=== PATIENT | female | born 1995 | race Caucasian/White ===

== ENCOUNTER 2017-08-12 23:19 | Inpatient (IN) | payer OTHER ==
[~2017-08-12] VITALS: Ht 172.7 cm; Wt 93.9 kg
[~2017-08-12 23:19] MED LIST: DICLEGIS DR 101 EACH PO; PRENATAL TABLE1 EAC2 PO; ZOFRAN ODT4 M1 SL
[2017-08-13 01:33] LABS: ABSOLUTE BASOPHIL COUNT 0 /CUMM (0.0-0.2); ABSOLUTE EOSINOPHIL COUNT 0.7 /CUMM (0.0-0.7); ABSOLUTE GRANULOCYTE CT 11.9 /CUMM (1.4-6.5); ABSOLUTE LYMPH COUNT 1.8 /CUMM (1.2-3.4); BASOPHIL % 0.2 % (0.0-2.0); EOSINOPHIL % 4.8 % (0-5); HEMATOCRIT 32.1 % (37-47); MEAN CORPUSCULAR HGB 29.7 PG (27.0-31.0); MEAN CORPUSCULAR HGB CONC 33.8 G/DL (33.0-37.0); MEAN CORPUSCULAR VOLUME 87.9 FL (81.0-99.0); MEAN PLATELET VOLUME 8.6 FL (7.4-10.4); PLATELET COUNT 215 /CUMM (130-400); RED BLOOD CELL CT 3.65 /CUMM (4.20-5.40); WHITE BLOOD CELL COUNT 15.4 /CUMM (4.8-10.8)
[2017-08-13 03:11] VITALS: BP 127/68
--- NOTE | 2017-08-13 07:10 | History & Physical ---
General Information and HPI MD Statement: I have seen and personally examined EUGENIO SIMON and documented this H&P. The patient is a 21 year old female at 40weeks and 2 days gestation who presented with a chief complaint of contractions. Source of Information: patient, old records Exam Limitations: no limitations History of Present Illness: Patient is a 21 year old Para 0 with irregular contractions since Wednesday the 08 of August. Patient contacted expert medical writer several times with week with similar complaints. Took Bishop oil last night at 6-7 pm as well. Presented last night at 3 cm with painful contractions. 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 Home Who Do You Live With? self Primary Language: [place] Citizen Smoking Status: Never Smoked ETOH Use: denies use Illicit Drug Use: denies illicit drug use Living Will? unknown Power of Packer And Carry Out/HCP? unknown Other Social History: na Employment History Employment Employed Review of Systems Review of Systems Constitutional: Denies: no symptoms. EENTM: Denies: no symptoms. Cardiovascular: Denies: no symptoms. Respiratory: Denies: no symptoms. GI: Denies: no symptoms. Genitourinary: Denies: no symptoms. Musculoskeletal: Denies: no symptoms. Skin: Denies: no symptoms. Neurological/Psychological: Denies: no symptoms. Hematologic/Endocrine: Denies: no symptoms. Immunologic/Allergic: Denies: no symptoms. All Other Systems: Reviewed and Negative Date of LMP: 11/04/16 Date of Last Pap Smear: 02/01/17 Comments LSIL PAP Exam & Diagnostic Data Last 24 Hrs of Vital Signs/I&O Vital Signs Date Time Temp Pulse Resp B/P B/P Pulse O2 O2 Flow FiO2 Mean Ox Delivery Rate 08/13 0311 127/68 Intake & Output 08/13 0800 04 0000 04 1600 Intake Total Output Total Balance Patient 93.894 kg Weight Obstetric Exam Wgt Gained During : 20 LBS Pelvimetry: Gynecoid Dilation (cm): 3 Effacement (%): 100 Station: -1 Membranes: intact Fluid: intact Fundal Height (cm): 38 Multiple Gestation? No Contractions: regular q4 #1 - FHR Baseline: 140 Category: 1 Estimated Weight: 3500 grams Presentation: Cephalic Patient for Induction? No John Score John Score Response Value Cervix Position: mid-position 1 Cervix Consistency: soft 2 Cervix Effacement: >80% 3 Cervix Dilation: 3-4 cm 2 Cervix Station: -1 2 Total 10 Physical Exam General Appearance Alert, Oriented X3, Cooperative, Mild Distress Skin No Rashes HEENT Atraumatic, PERRLA Neck Supple Cardiovascular Regular Rate Lungs Normal Air Movement Abdomen Normal Bowel Sounds, Soft Neurological Normal Gait, Normal Speech, Strength at 5/5 X4 Ext, Normal Tone, Sensation Intact, Reflexes 2+ Extremities No Edema Breasts Breast appear nl Reproductive (FEMALE) Normal female genitalia Labs Blood Type & Rh: A positiver Antibody Screen: negative Hct/Hgb & Platelets #1: 38 Hct/Hgb & Platelets #2: 33.8/232 Rubella: immune VDRL #1: negative VDRL #2: negative HbsAg: negative HIV #1: negative HIV #2 negative 1 Hr P Group B Strep: negative Initial Ultrasound: None documented Anatomy Ultrasound: wnl per patient Genetic Testing: None documented Last 24 Hrs of Labs/Dez: Laboratory Tests 08/13/17 0040: CBC w Diff NO MAN DIFF REQ, RBC 3.65 L, MCV 87.9, MCH 29.7, MCHC 33.8, RDW 14.0 , MPV 8.6, Gran % 77.0 H, Lymphocytes % 11.6 L, Monocytes % 6.4, Eosinophils % 4.8, Basophils % 0.2, Absolute Granulocytes 11.9 H, Absolute Lymphocytes 1.8, Absolute Monocytes 1.0 H, Absolute Eosinophils 0.7, Absolute Basophils 0 08/12/17 2340: Urine Color YEL, Urine Clarity CLEAR, Urine pH 6.5, Ur Specific [place] 1.020, Urine Protein NEG, Urine Ketones NEG, Urine Nitrite NEG, Urine Bilirubin NEG, Urine Urobilinogen 0.2, Ur Leukocyte Esterase NEG, Ur Microscopic EXAM NOT REQUIRED, Urine Hemoglobin NEG, Urine Glucose NEG 08/12/17 2335: Membrane Rupture NEGATIVE Assessment/Plan Assessment/Plan: 21 year old para 0 at term now at time of writing of note is complete. Catagory 1 tracing and light meconium on rupture of membranes S/p epidural and awaiting second stage. Good labor progress and gynecoid pelvis. Patient's partner at bedside History of asthma and stable at present. I will review influenza and tdap if not received. As Ranked By This Provider Problem List: 1. Core Measures Venous Thromboembolism VTE Risk Factors / No Mechanical VTE Prophylaxis d/t N/A MechProphylax Ordered No VTE Pharm Prophylaxis d/t NA PharmProphylax ordered Attending MD Review Statement Attending Statement Attending MD Statement: examined this patient, discussed w/nursing Attending Assessment/Plan: As above
--- NOTE | 2017-08-13 08:07 | Labor & Delivery Summary ---
Delivery Summary Vaginal Delivery: Vaginal: vertex Episiotomy/Lacerations: Episiotomy/Lacerations: 2nd degree fourchette; sulcus on right 2-3 cm Type: as above Repair: 3-0 vicryl used to repair both. Anesthesia: epidural Placenta: Placenta: spontanteous, normal, 3 vessel Anesthesia: Epidural Cord PH Value: NA Baby's Weight: 1cu38hy Apgars - 1 Min: 9 Apgars - 5 Min: 9 Additional Comments: Rectum intact Peds present for meconium stained fluid Methergine and oxytocin for uterine tonus EBL 350 cc
[2017-08-13] MEDS ORDERED: Motrin PO (14:21)
[2017-08-14 08:49] LABS: ABSOLUTE BASOPHIL COUNT 0 /CUMM (0.0-0.2); ABSOLUTE EOSINOPHIL COUNT 0.6 /CUMM (0.0-0.7); ABSOLUTE GRANULOCYTE CT 9.8 /CUMM (1.4-6.5); ABSOLUTE MONOCYTE COUNT 0.8 /CUMM (0.10-0.60); BASOPHIL % 0.2 % (0.0-2.0); EOSINOPHIL % 4.3 % (0-5); GRANULOCYTE % 74.2 % (42.2-75.2); HEMATOCRIT 30.6 % (37-47); MEAN CORPUSCULAR HGB 29.2 PG (27.0-31.0); MEAN CORPUSCULAR VOLUME 88.5 FL (81.0-99.0); MEAN PLATELET VOLUME 8.4 FL (7.4-10.4); PLATELET COUNT 206 /CUMM (130-400); RBC DISTRIBUTION WIDTH 13.9 % (11.5-14.5); RED BLOOD CELL CT 3.46 /CUMM (4.20-5.40); WHITE BLOOD CELL COUNT 13.2 /CUMM (4.8-10.8)
--- NOTE | 2017-08-14 11:26 | PN- Post Delivery/GYN ---
Subjective Subjective: Some difficulty with breast-feeding Review of Systems: Negative Objective Last 24 Hrs of Vital Signs/I&O Fundus firm Extremities nontender Assessment/Plan Assessment/Plan Status post day 1 stable Plan: Continue instruction per nursing plan for discharge tomorrow Problem List: 1.
[2017-08-15] MEDS ORDERED: DOCUSATE SODIU100 M3 PO (13:26)
== END 2017-08-15 13:30 | DRG 775 ==
LOC: CBCO 23:19 → GNO 08-13 00:37
PROVIDERS: Obstetrics & Gynecology
PROC: 10E0XZZ Delivery of Products of Conception, External Approach (ICD-10-PCS; principal; 2017-08-13)
PROC: 0HQ9XZZ Repair Perineum Skin, External Approach (ICD-10-PCS; principal; 2017-08-13)
DX: O70.0 First degree perineal laceration during delivery (principal); O71.89 Other specified obstetric trauma; Z3A.40 40 weeks gestation of pregnancy; Z37.0 Single live birth
CPT/HCPCS: GNOS; 81003; 84112; J2210; J2405; J7120